=== PATIENT | male | born 1945 | race Caucasian/White ===

== ENCOUNTER 2021-04-27 02:10 | Inpatient (IN) | payer OTHER ==
[~2021-04-27] VITALS: Ht 182.9 cm; Wt 50.8 kg
--- NOTE | ~2021-04-27 | EMS ---
[address] [address] EMS Patient Care Report Name: CHAD SIMEON Room #: 350-P ADM IN M.R.#: [id number] Admission: 04/29/21 Attend Phys: Jaya Buchanan MD Discharge: Date of : 41 Report #: [id number] THIS REPORT FOR: //name// Report Transmitted: 04/30/2021 10:23 EMS Care Summary [place], [place]/[facility] Incident [id number] @ 04/27/2021 01:33 Incident Location [address] [facility] [address] Anne[address] Patient CHAD SIMEON Male, 76 Years 1945 Patient Address [address] [place] [address] [address] [place] [address] Patient History Chronic Obstructive Pulmonary Disease (COPD),Hypertension (HTN),Gastro-Esophageal Reflux Disease (GERD),Bronchitis Chronic,Emphysema,Anxiety Disorder (Panic Attacks),Depression,Anemia,Chronic Respiratory Failure, Patient Allergies No known allergies, Patient Medications Enoxaparin, Zoloft, Xanax, Aspirin, Valium, Albuterol, Combivent, Atrovent, Chief Complaint Short of Breath ( extreme) Disposition Transported [place] Reason Breathing Problem Transported To [address] [address] EMS Patient Care Report Name: CHAD SIMEON Room #: 350-P ADM IN M.R.#: [id number] Admission: 04/29/21 Attend Phys: Jaya Buchanan MD Discharge: Date of : 41 Report #: [id number] Nurse at [facility] stated Pt is new to the facility and since he arrived early yesterday he has been non compliant with his medication and the only thing that the Pt wanted was his Anxiety Medication and has refused to use his Rescue Inhaler or nebulizer treatments ordered every 2-[address] Valdez stated around 1800 hrs Pt started C/O being short of breath and would then use his Nebulizer treatment but would only use it for a little while and then ask for more of his Anxiety Medication, due to Pt telling her at that time is the only thing that can help his breathing . Nurse stated as the late evening and morning went on Pt became more short of breath and refused further Medication for his Chronic COPD and Pt oxygen sat's have dropped into the low 90's and upper 80's and turned Pt oxygen up to 6 lpm via N.C. and she noticed that Pt lung varma were diminished in lower lobes and Pt was struggling to breath. Pt is unable to speak with EMS due to being extremely short of Breath. Pt found sitting in his bed leaning forward in the tripod position , using accessory and abdominal muscle to breath with and Pt oxygen Saturation was at 82% on 6 lpm via N.C which staff had turned up . Pt is pale , extremely diaphoretic with cyanotic finger nails , lips and Pt is a GCS 15 and could not speak more than 2 words due to being extremely short of breath. Pt is with diminished lung sounds noted in lower lung varma bilateral and extremely diminished lungs sounds noted in Pt lung sounds in upper lung varma bilateral . EMS placed a Atrovent and Abuteral tx via neb mask on Pt @ 8 LPM and Pt would only hold it so close to his face when EMS attempted to get Pt to place on his face and take deep breaths. Pt had no change and EMS attempted to place Pt on CPAP but Pt began to fight and the more he was getting upset the worse his breathing was. EMS attempted to place the Pt back on A&A nebulizer treatment and coached Pt to take deep breaths to get medication down into lung varma, but Pt still would not place mask tight against his face. EMS placed a I.V lock in Pt and gave Pt Solu-medrol S,I.V.P and Pt received 125 MG I.V, Pt still had no change in breathing rate or type of breathing and still was fighting to take deep breaths. Pt loaded up in Ambulance transported to [facility] ER and received by RN / Adrianna Please note Pt is a GCS 15 and had no change in his LOC while with EMS, Pt could not sign due to being extremely short of Breath and moved into ER. Initial Vitals @01:45P: 126,R: 30,BP: 192/110,Pain: 0/10,GCS: 15,SpO2: 82,Revised Trauma: 11, @02:00P: 126,R: 32,BP: 173/112,Pain: 0/10,GCS: 15,SpO2: 88,Revised Trauma: 11, @01:52P: 128,R: 30,BP: 187/102,Pain: 0/10,GCS: 15,SpO2: 88,Revised Trauma: 11, Assessments @01:43MENTAL:Event Oriented,Time Oriented,Place Oriented,Person Oriented,SKIN:Cyanotic,Pale,Diaphoresis,HEENT:Head/Face: No Abnormalities,Neck/Airway: No Abnormalities,LUNG SOUNDS:General: Other,ABDOMEN:General: Other,PELVIS//GI:No [facility] [address] [place] [address] EMS Patient Care Report Name: CHAD SIMEON Room #: 350-P [facility]#: [id number] Admission: 04/29/21 Attend Phys: Jaya Buchanan MD Discharge: Date of : 41 Report #: [id number] Abnormalities,EXTREMITIES:Capillary Refill: Left Upper: < 2 Sec,Left Arm: No Abnormalities,Right Arm: No Abnormalities,Left Leg: No Abnormalities,Right Leg: No Abnormalities,PULSE:Radial: 2+ Normal,NEURO:No Abnormalities,@02:00MENTAL:Event Oriented,Place Oriented,Time Oriented,Person Oriented,SKIN:Pale,Diaphoresis,Cyanotic,HEENT:Head/Face: No Abnormalities,Neck/Airway: No Abnormalities,LUNG SOUNDS:General: Other,ABDOMEN:General: Other,PELVIS//GI:No Abnormalities,EXTREMITIES:Capillary Refill: Left Upper: < 2 Sec,Left Arm: No Abnormalities,Right Arm: No Abnormalities,Left Leg: No Abnormalities,Right Leg: No Abnormalities,PULSE:Radial: 2+ Normal,NEURO:No Abnormalities, Impression Chronic Obstructive Pulmonary Disease (COPD) Procedures @01:43ALS AssessmentResponse: UnchangedSucceeded@01:46CPAP FlowRate: 15 Response: WorseFailed@PTAOxygen FlowRate: 6 Device: Nasal Cannula (NC) Response: UnchangedFailed@01:483-Lead ECGResponse: UnchangedSucceeded@01:49Albuterol - 2.5 Milligrams (mg) - NebulizedResponse: Unchanged@01:49Atrovent - 0.5 Milligrams (mg) - NebulizedResponse: Unchanged@01:53Saline Lock 0cc (18 ga) Site: Antecubital-LeftResponse: UnchangedSucceeded@01:56Solu-Medrol - 125 Milligrams (mg) - Intravenous (IV)Response: Unchanged@02:00Albuterol - 2.5 Milligrams (mg) - NebulizedResponse: Unchanged Timeline 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,Oxygen FlowRate: 6 Device: Nasal Cannula (NC) Response: UnchangedFailed, 01:31,Call Received 01:31,Dispatch Notified 01:33,Dispatched 01:35,En Route 01:40,On Scene 01:43,At Patient 01:43,ALS Assessment,Response: UnchangedSucceeded, 01:45,BP: 192/110 M,PULSE: 126,RR: 30 R,SPO2: 82 Ox,ETCO2: ,BG: ,PAIN: 0,GCS: 15, 01:46,CPAP FlowRate: 15 Response: WorseFailed, 01:48,3-Lead ECG,Response: UnchangedSucceeded, 01:49,Albuterol - 2.5 Milligrams (mg) - Nebulized,Response: Unchanged 01:49,Atrovent - 0.5 Milligrams (mg) - Nebulized,Response: Unchanged 01:52,BP: 187/102 M,PULSE: 128,RR: 30 R,SPO2: 88 Ox,ETCO2: ,BG: ,PAIN: 0,GCS: 15, 01:53,Saline Lock 0cc 18 ga Site: Antecubital-Left,Response: UnchangedSucceeded, 01:56,Solu-Medrol - 125 Milligrams (mg) - Intravenous (IV),Response: Unchanged 02:00,Albuterol - 2.5 Milligrams (mg) - Nebulized,Response: Unchanged 02:00,BP: 173/112 M,PULSE: 126,RR: 32 R,SPO2: 88 Ox,ETCO2: ,BG: ,PAIN: 0,GCS: [address] [address] EMS Patient Care Report Name: CHAD SIMEON Room #: 350-P ADM IN M.R.#: [id number] Admission: 04/29/21 Attend Phys: Jaya Buchanan MD Discharge: Date of : 41 Report #: [id number] 15, 02:01,Depart Scene 02:03,At Destination 02:22,Call Closed Disclaimer v1.1 Copyright 2020 [employer] This EMS Care Summary contains data elements from the applicable legal record (which may be displayed differently). It is designed to provide pertinent information for the following purposes: continuity of care, clinical quality, and state data reporting. The complete legal record is available to ED staff and administrators of the receiving hospital in [employer] Patient Tracker. All data is provided "as is."
[2021-04-27 02:10] VITALS: BP 108/69
[~2021-04-27 02:10] MED LIST: ALBUTEROL2.5 MG/0.1 INH; ALPRAZOLAM 0.0.25 M1 PO; ALUM-MAG HYDRO360 ML PO; APHEN325 MG PO; DUONEB 2.5-0.5 M3 ML INH; HYDROCODON-ACE1 EAC7 PO; LEVAQUIN 500 M500 M2 PO; ONDANSETRON HCL4 M1 IV; PROTONIX40 M2 PO; ROCEPHIN 1 GM VL1 G1 PO; ROCEPHIN 11 GM/100 M IV; SENNA PO; SIMETHICON CHEW80 M1 PO; SOLU-MEDRO125 MG/24 IV; SYMBICORT160 MCG/4. PO; TAMSULOSIN HCL0.4 M1 PO; XARELTO15 MG PO; XARELTO20 MG PO; [UNRECOGNIZED DRUG - CODE] IV
[2021-04-27 02:38] LABS: HEMATOCRIT 43.2 % (42.0-52.0); HEMOGLOBIN 13.2 gm/dL (14.0-18.0); MCHC 30.6 g/dL (28.0-37.0); MCV 88.2 fL (80.0-100.0); PLATELET COUNT 329 thou/uL (150-400); RDW 15.4 % (10.5-14.5); WBC 24.1 thou/uL (4.0-11.0)
[2021-04-27 02:39] LABS: BE(vivo) 8.7 mmol/L (-2 to +3); HCO3 37.9 mmol/L (22.0-26.0); PO2 62.8 mmHg (80.0-100.0); sO2 89.2 % (92.0-98.0)
[2021-04-27 02:40] LABS: PCO2 75.3 mmHg (35.0-45.0)
[2021-04-27 02:53] LABS: CALCIUM 10.1 mg/dL (8.5-10.1); CREATININE 0.8 mg/dL (0.7-1.3); POTASSIUM 5.7 mmol/L (3.5-5.1)
[2021-04-27 02:57] LABS: ALBUMIN 2.7 g/dL (3.4-5.0); TOTAL BILIRUBIN 0.3 mg/dL (0.2-1.0); TOTAL PROTEIN 6.9 g/dL (6.4-8.2)
[2021-04-27 03:26] LABS: ABSOLUTE NEUTROPHILS 22.9 thou/uL (1.4-8.2); METAMYELOCYTES 1 %
[2021-04-27 05:32] LABS: BE(vivo) 9.9 mmol/L (-2 to +3); HCO3 38.1 mmol/L (22.0-26.0); PO2 77.5 mmHg (80.0-100.0); pH 7.359 (7.360-7.450); sO2 94.5 % (92.0-98.0)
[2021-04-27 05:33] LABS: PCO2 69.2 mmHg (35.0-45.0)
[2021-04-27] MEDS ORDERED: ASA81BEC PO (06:16)
[2021-04-27] MEDS ORDERED: CHOLECALCIFEROL1 GM PO (06:19)
[2021-04-27] MEDS ORDERED: ENOXAPARIN40 MG/0.1 PO (06:20)
[2021-04-27] MEDS ORDERED: OMEPRAZOLE 20 M20 M1 PO (06:21)
[2021-04-27] MEDS ORDERED: ZOLOFT 50 MG TA50 MG PO (06:22)
[2021-04-27] MEDS ORDERED: XANAX 0.25 MG0.25 MG PO (06:22)
[2021-04-27 07:04] VITALS: BP 108/77
--- NOTE | 2021-04-27 09:36 | EKG ---
[address] [place] [address] ELECTROCARDIOGRAM REPORT Name: CHAD SIMEON Javier Room #: 350-P ADM IN M.R.#: [id number] Admission: 04/27/21 Attend Phys: Tyron Troncoso MD Discharge: Date of : 41 Report #: [id number] [facility] ED Test Date: 2021-04-27 Test Time: 03:35:06 Pat Name: CHAD SIMEON Department: Room: 350 Gender: M Mine Deputy: thierry : 1945 Requested By: Jaime Cole Order Number: [id number] MD: Hebert Buchanan Measurements Intervals Gamaliel Rate: 89 P: 81 AL: 127 QRS: -78 QRSD: 100 T: 76 QT: 340 QTc: 414 Interpretive Statements Sinus rhythm Left anterior fascicular block Abnormal R-wave progression, early transition Compared to ECG 08/07/2012 19:56:05 Left anterior fascicular block now present Sinus tachycardia no longer present Electronically Signed On 04-27-2021 9:36:04 CDT by Hebert Buchanan [email or web address] <ELECTRONICALLY SIGNED> By: Hebert Buchanan MD, [facility] 04/27/21 0936 [id number] Hebert Buchanan MD, [facility] /EPI
[2021-04-27 09:48] VITALS: BP 120/80
--- NOTE | 2021-04-27 10:09 | NUR ---
ADMIT: PT ARRIVED TO UNIT ON BIPAP. A&OX4, LUNGS DIMINISHED, BOWEL SOUNDS ACTIVEX4. PT STATES HE DID URINATE IN ER WHILE WAITING FOR ROOM ON 3W. PT APPEARS CACHETIC, COLOR WNL WITH BRUISING AT LAB DRAW SITES. DIET CONSISTENCY CHANGED TO FOLLOW ORDERS FROM IGNITE. PT DOES NOT HAVE TEETH. PER REPORT FROM FACILITY, PT BASELINE IS 4L VIA NC. THIS RN ASSISTED PT IN BRIEFLY LOOSENING BIPAP TO TAKE A DRINK OF WATER, MASK NOT FULLY REMOVED. PT TOLERATED WELL, MASK FULLY REAPPLIED. PT HAS NO PAIN, NO OTHER QUESTIONS OR CONCERNS AT THIS TIME.
[2021-04-27 10:17] LABS: CALCIUM 9.4 mg/dL (8.5-10.1); CREATININE 0.8 mg/dL (0.7-1.3); POTASSIUM 5.3 mmol/L (3.5-5.1)
[2021-04-27 15:30] VITALS: BP 122/70
[2021-04-27 20:11] VITALS: BP 149/85
[2021-04-27 22:56] LABS: CALCIUM 8.8 mg/dL (8.5-10.1); CREATININE 0.8 mg/dL (0.7-1.3); MAGNESIUM 1.9 mg/dL (1.8-2.4); POTASSIUM 4.4 mmol/L (3.5-5.1)
[2021-04-27 23:47] VITALS: BP 164/88
[2021-04-28 02:40] VITALS: BP 157/88
--- NOTE | 2021-04-28 06:53 | NUR ---
ASSUME CARE 1900. PT/VITALS STABLE. DENIES ANY PAIN. VERY POOR TOLERANCE TO ACTIVITY. WILL BENEFIT FROM PT.OT EVAL AND TX. ASSESSMENT CHARTED. PROGRESSING MODERATELY WITH POC. PLAN IS TO CONTINUE TO ENCOURAGE COUGINH AND DEEP BREATHING, MONITOR AND MANAGE RESPIRATORY FUNCTION, AND ENCOURAGE NUTRITIONAL INTAKE. WILL CONTINUE TO MONITOR AND FOLLOW WITH POC
[2021-04-28 06:59] VITALS: BP 168/86
[2021-04-28 07:24] VITALS: BP 162/63
[2021-04-28 11:35] VITALS: BP 126/78
--- NOTE | 2021-04-28 12:52 | 2DMMODE ---
[facility] [place] [address] 2 D/M-MODE ECHOCARDIOGRAM Name: CHAD SIMEON Room #: 350-P ADM IN M.R.#: [id number] Admission: 04/27/21 Attend Phys: Tyron Troncoso MD Discharge: Date of : 41 Report #: [id number] THIS REPORT FOR: cc: Osiel Carrillo MD, Christopher B. MD Santiago, Patrick MD [facility] ~ APPROVED REPORT Study performed: 04/28/2021 12:12:31 EXAM: Comprehensive 2D, Doppler, and color-flow Echocardiogram Patient Location: Bedside Room #: 350 Status: routine BSA: 1.59 HR: 78 bpm BP: 126/78 mmHg Rhythm: Very irregular. Sinus Other Information Study Quality: Adequate Technically limited study due to very thin body habitus/COPD/unable to position. Indications Hypoxia, NSVT. Hx: Severe COPD, PE. 2D Dimensions RVDd: 37.64 mm IVSd: 9.43 (7-11mm) LVOT Diam: 21.55 (18-24mm) LVDd: 51.37 mm PWd: 8.63 (7-11mm) LVDs: 39.84 (25-40mm) Left Atrium: 34.58 (27-40mm) Aortic Root: 36.92 mm Volumes Left Atrial Volume (Systole) Single Plane 4CH: 45.50 mL Aortic Valve AoV Peak Jose Daniel.: 1.20 m/s AO Peak Gr.: 5.84 mmHg LVOT Max P.53 mmHg [facility] [address] [place] [address] 2 D/M-MODE ECHOCARDIOGRAM Name: BLANCOCHAD Javier Room #: 350-P [facility] IN .R.#: [id number] Admission: 04/27/21 Attend Phys: Tyron Troncoso MD Discharge: Date of : 41 Report #: [id number] LVOT Max V: 0.80 m/s COLIN Vmax: 2.42 cm2 Mitral Valve E/A Ratio: 0.7 MV Decel. Time: 212.62 ms MV E Max Jose Daniel.: 0.48 m/s MV A Jose Daniel.: 0.72 m/s MV PHT: 61.66 ms Pulmonary Valve PV Peak Jose Daniel.: 0.61 m/s PV Peak Gr.: 1.49 mmHg Tricuspid Valve TR Peak Jose Daniel.: 3.70 m/s RAP Estimate: 15.00 mmHg TR Peak Gr.: 55.00 mmHg PA Pressure: 70.00 mmHg Left Ventricle The left ventricle is normal size. Paradoxical septal motion consistent with conduction abnormality. There is normal left ventricular wall thickness. Left ventricular systolic function is normal. LVEF is 50-55%. Mild diastolic dysfunction is present (impaired relaxation pattern). Right Ventricle Right ventricle is borderline dilated. Right ventricle is hypokinetic. Atria The left atrium size is normal. The right atrium size is normal. Aortic Valve The aortic valve is normal in structure. No aortic regurgitation is present. There is no aortic valvular stenosis. Mitral Valve The mitral valve is normal in structure. Moderate to severe mitral regurgitation Tricuspid Valve The tricuspid valve is normal in structure. Mild tricuspid regurgitation. Estimated PAP is 65-70mmHg. Pulmonic Valve [facility] [address] [place] [address] 2 D/M-MODE ECHOCARDIOGRAM Name: CHAD SIMEON Room #: 350-[facility] IN .R.#: [id number] Admission: 04/27/21 Attend Phys: Tyron Troncoso MD Discharge: Date of : 41 Report #: [id number] The pulmonary valve is normal in structure. Mild pulmonic regurgitation. Great Vessels The aortic root is normal in size. Ascending aorta is not well visualized. IVC is dilated and collapses <50% with inspiration. Pericardium There is no pericardial effusion. <Conclusion> Normal left ventricle size/wall thickness Ejection fraction 60% Grade 1 diastolic dysfunction Normal right ventricular size/function Normal atrial size Normal aortic valve structure and function Moderate to severe mitral valve insufficiency Mild tricuspid valve insufficiency Severe pulmonary hypertension Pulmonary systolic pressure estimated 65-70 mmHg Normal aortic root size No pericardial effusion Ascending aorta not well visualized <ELECTRONICALLY SIGNED> By: Davion Pichardo MD, [facility] 04/28/21 1252 125 51 Davion Pichardo MD, FACC /INF
[2021-04-28 15:20] VITALS: BP 147/89
--- NOTE | 2021-04-28 15:24 | NUR ---
INITIAL ASSESSMENT: Received consult. IDA reviewed chart and spoke with nursing and attending physician. Pt was admitted from [facility] due to acute respiratory failure. Pt with hx of COPD. Pt is on 6L of O2 and IV abx. IDA notified Tanner in admissions at [facility] of pt's admission. Pt is currently in their skilled unit. IDA spoke with pt via phone. Introduced role of SW. Pt appears to be alert/orientated. Pt reports he has been at [facility] for rehab and normally lives at home with his ex-. Pt states that he is unsure about his discharge plan, as he does not think that he will return to [facility]. Pt asked IDA to contact his dtr, Ledy. IDA placed call to Ledy ([phone]). Voice mailbox is full. IDA updated admissions at [facility]. IDA is following to assist as needed with discharge planning.
[2021-04-28 19:55] VITALS: BP 154/84
[2021-04-29 04:07] VITALS: BP 139/75
--- NOTE | 2021-04-29 04:43 | NUR ---
Pt. requested anxiety med, alprazolam given at HS and again this am with good results. He stated he slept fair during the night but once he woke up he can't go back to sleep and was feeling anxious. O2 at 6L/HF until this am around 0330. O2 sat of 88%. RT notified and O2 adjusted to 8L/HF to maintain his O2 sat greater than 90%. O2 sat of 91%-92 % on 8L/HF. He gets short of breath with minimal exertion. Assisted to use bedside commode , he voided and had bm. Also urinal later on. Burst of tachycardia around 2337 PM ,asymptomatic. Bed alarm on for safety. He calls appropriately for assistance.
[2021-04-29 07:50] VITALS: BP 138/79
[2021-04-29 11:41] VITALS: BP 129/76
--- NOTE | 2021-04-29 13:33 | NUR ---
PT ALERT AND ORIENTED X4, DENIES CHEST PAIN, NNAUSEA AND VOMITTING. XANAX GIVEN FOR ANXIETY. CURRENTLY ON 10L OF O2, BASELINE 4-5L. USES URINAL. SKIN FRAIL, BRUISES SCATTERED. FALL PRECAUTION IN PLACE. DENIES ANY NEEDS MINERVA.
[2021-04-29 15:02] VITALS: BP 133/79
--- NOTE | 2021-04-29 15:41 | NUR ---
IDA reviewed chart and spoke with nursing and attending physician. Pt is on 10L of O2 and is on IV abx/IV steroids. Therapy evals ordered to evaluate pt for discharge needs. IDA placed call to pt's dtr, Ledy. Voice mailbox is full. IDA is following to assist as needed with discharge planning.
[2021-04-29 16:11] LABS: CALCIUM 9.3 mg/dL (8.5-10.1); CREATININE 0.7 mg/dL (0.7-1.3); MAGNESIUM 2.2 mg/dL (1.8-2.4); POTASSIUM 5.1 mmol/L (3.5-5.1)
[2021-04-29 19:15] VITALS: BP 127/71
--- NOTE | 2021-04-30 02:00 | NUR ---
Sound asleep at shift change. Didn't want to eat dinner tray once he woke up except dessert (cheese cake) and ensure supplement. IV on right AC leaking , dc'd and Iv on left AC dc'd , field stick. New IV placed on right upper arm. O2 at 10L/HF with O2 sat in the low 90's. Desats easily with min activity and gets short of breath with minimal exertion. He requested xanax for anxiety with some help. RT placed him on BIPAP around 2330 at 50% FIO2 which he kept for only 30 minutes then he requested it off.
[2021-04-30 04:23] VITALS: BP 140/79
[2021-04-30 08:06] VITALS: BP 150/89
[2021-04-30 12:04] VITALS: BP 164/81
--- NOTE | 2021-04-30 15:12 | NUR ---
1100 PT O2 SAT DROP DOWN TO LOW 80'S, O2 INCREASED. DR. FLYNN ROUNDALFONSO, MADE AWARE. RT PLACED PT ON OPTIFLOW PER DR. FLYNN ORDER. OPTIFLOW AT 87%,40L. SHALLOW RESPIRATIONS AND DYSPNEIC WITH NO OR LITTLW ACTIVITY. PT WAS IN CHAIR FOR A COUPLE OF HOURS BACK IN BED. USES URINAL AND HAD A BM. FALL PREC. IN PLACE. DENIES ANY NEEDS AT MOMENT
--- NOTE | 2021-04-30 15:28 | NUR ---
SW reviewed chart and spoke with nursing and attending physician. Pt's O2 increased to 15L of O2. Pt is on IV abx and IV steroids. IDA placed call to pt's dtr, Ledy. Introduced role of SW. Pt normally lives at home with Ledy, in [place], [place]. 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 and then sent to [facility]. Ledy states they would prefer pt be discharged to a facility closer to [place]. SW discussed several options. Prior to admission, pt was using a walker at home and has a w/c for long distances. Pt is normally on 3-5L of O2 at home. [facility]. Pt does not have a PCP. Pts's dtr states that pt has said he would like to donate his body to medical science. Pt has not started the process. Pt's dtr asked SW for assistance. IDA sent email to Clark Perales Body Correction Officer Head at [facility] to obtain info. PT/OT to work with pt when he is able to participate. SW is following to assist as needed with discharge planning.
[2021-04-30 15:51] VITALS: BP 140/75
[2021-04-30 17:00] VITALS: BP 159/81
--- NOTE | 2021-04-30 17:19 | NUR ---
1500 PT STATED HAVING CHEST PAIN, 7/10 FELT LIKE DISCOMFORT. VITALS SIGNS STABLE, SEE FLOW CHAT. EKG COMPLTED, SNR. DR. ARITA PAGED. PT STATED EKG GONE AFTER I PAGE NO NEW ORDERS GIVEN
[2021-04-30 19:44] VITALS: BP 161/93
[2021-05-01] VITALS (17 sets, daily range): BP systolic 119–177; BP diastolic 65–99
--- NOTE | 2021-05-01 04:26 | NUR ---
PROGRESS PT A/O X4, VERY ANXIOUS. C/O BACK PAIN AND GIVEN TYLENOL WITH EFFECT. TAKING XANAX Q8HRS PRN FOR ANXIETY WITH EFFECT, PT SEEMS TO SETTLE AND RELAX AFTER GIVEN. REMAINS ON OPTIFLO AT 40L/87% FIO2, LUNGS COARSE THROUGHOUT AND PT COUGHING UP THICK CLEAR/ MOLINA SPUTUM, SUCTION WITH YANKEUR PROVIDED IT SEEMS PT HAVING DIFFICULTY CLEARING SPUTUM FROM MOUTH AND THROAT. STAYED IN BED FOR 2 HOURS THEN BACK UP TO THE CHAIR FOR THE NIGHT. RT TREATMENTS CONTINUE. CONTINUE POC.
[2021-05-01 05:14] LABS: ABSOLUTE NEUTROPHILS 14.8 thou/uL (1.4-8.2); BASOPHILS 0.2 % (0.0-2.0); EOSINOPHILS 0.1 % (0.0-3.0); HEMATOCRIT 39.9 % (42.0-52.0); HEMOGLOBIN 12.4 gm/dL (14.0-18.0); LYMPHOCYTES 1.8 % (24.0-44.0); MCH 27.3 pg (26.0-34.0); MCHC 31.1 g/dL (28.0-37.0); MCV 87.7 fL (80.0-100.0); MONOCYTES 2.9 % (1.0-8.0); PLATELET COUNT 339 thou/uL (150-400); RBC 4.55 mil/uL (4.50-6.00); WBC 15.6 thou/uL (4.0-11.0)
[2021-05-01 06:11] LABS: ALBUMIN 2.4 g/dL (3.4-5.0); CALCIUM 9.1 mg/dL (8.5-10.1); CREATININE 0.8 mg/dL (0.7-1.3); TOTAL BILIRUBIN 0.3 mg/dL (0.2-1.0); TOTAL PROTEIN 5.9 g/dL (6.4-8.2)
[2021-05-01 06:17] LABS: POTASSIUM 5.3 mmol/L (3.5-5.1)
--- NOTE | 2021-05-01 07:17 | EKG ---
[place] [address] [facility] [place] [address] ELECTROCARDIOGRAM REPORT Name: CHAD SIMEON Room #: 350-P ADM IN M.R.#: [id number] Admission: 04/27/21 Attend Phys: Jaya Buchanan MD Discharge: Date of : 41 Report #: [id number] [facility] Test Date: 2021-04-30 Test Time: 16:56:22 Pat Name: CHAD SIMEON Department: Room: 350 P Gender: M Woodyard Operator: LORELEI : 1945 Requested By: Samra Simpson Order Number: [id number] MD: Davion Pichardo Measurements Intervals [place] Rate: 57 P: 45 OH: 130 QRS: -70 QRSD: 103 T: 51 QT: 384 QTc: 374 Interpretive Statements Sinus rhythm Multiple premature complexes, vent & supraven Left anterior fascicular block Abnormal R-wave progression, early transition Nonspecific T abnormalities, anterior leads Baseline wander in lead(s) V4 Compared to ECG 04/27/2021 03:35:06 T-wave abnormality now present Electronically Signed On 05-01-2021 7:16:39 CDT by Davion Pichardo [email or web address] <ELECTRONICALLY SIGNED> By: Davion Pichardo MD, FACC 05/01/21 0716 1656 165 Davion Pichardo MD, [facility] /EPI
[2021-05-01 09:05] LABS: BE(vivo) 13.6 mmol/L (-2 to +3); HCO3 43.5 mmol/L (22.0-26.0); PO2 66.2 mmHg (80.0-100.0); pH 7.331 (7.360-7.450); sO2 90.6 % (92.0-98.0)
[2021-05-01 09:10] LABS: PCO2 84.3 mmHg (35.0-45.0)
--- NOTE | 2021-05-01 11:09 | NUR ---
Consider appetite stimulant, obtain current weight now and twice weekly
--- NOTE | 2021-05-01 11:17 | NUR ---
IDA reviewed chart and spoke with nursing and attending physician. Pt placed on optiflow yesterday afternnon and then placed on bipap this morning. Pt to be transferred to ICU. IDA provided attending physician with phone number for pt's juan ramonrLedy. IDA/TORI following to assist as needed with discharge planning.
--- NOTE | 2021-05-01 11:58 | NUR ---
assumed care of pt at 0700. pt unable to maintain spo2 > 90% on optiflow despite increased O2. requiring bipap to meet o2 needs. physician notified. lasix ordered. plans to transfer to icu. dtr notified of change in patient status. report given to ICU nurse. waiting on RT to transfer patient to rm 236. pt stable at this time.
--- NOTE | 2021-05-01 15:21 | NUR ---
PT DAUGHTER AT BEDSIDE NOW, PT RESTING COMFORTABLY, TALKING TO DAUGHTER. PT IS TOELRATING BIPAP WELL MAINTAINING OXYGEN SATS IN HIGH 90'S. PT HAD GOOD RESPONSE TO LASIX, HIGH CATH PLACED TO MONITOR I&O'S AND DECREASE PATIENT FATIGUE AND TO MAINTAIN OXYGEN LEVELS. WILL CONTINUE TO MONTIOR AND FOLLOW POC.
--- NOTE | 2021-05-01 15:21 | NUR ---
A #5F TRIPLE LUMEN POWER PICC WAS PLACED AFTER A BEDSIDE TIMEOUT WAS COMPLETED PER HOSPITAL POLICY. THE LINE WAS TRIMMED TO 46CM AND ADVANCED WITHOUT DIFFICULTY. THE LINE WAS CONFIRMED AT 1CM EXTERNAL USING SHERLOCK 3CG. SECURED AND RELEASED FOR USE
[2021-05-02] VITALS (23 sets, daily range): BP systolic 115–163; BP diastolic 64–90
[2021-05-02 04:53] LABS: ABSOLUTE NEUTROPHILS 11.2 thou/uL (1.4-8.2); BASOPHILS 0.1 % (0.0-2.0); HEMATOCRIT 35.8 % (42.0-52.0); HEMOGLOBIN 11.3 gm/dL (14.0-18.0); LYMPHOCYTES 1.6 % (24.0-44.0); MCH 27.1 pg (26.0-34.0); MCHC 31.5 g/dL (28.0-37.0); MONOCYTES 3.6 % (1.0-8.0); PLATELET COUNT 269 thou/uL (150-400); POLYS 94.7 % (36.0-66.0); RBC 4.16 mil/uL (4.50-6.00); RDW 14.2 % (10.5-14.5); WBC 11.8 thou/uL (4.0-11.0)
[2021-05-02 05:09] LABS: BE(vivo) 15.4 mmol/L (-2 to +3); HCO3 42.1 mmol/L (22.0-26.0); PCO2 61.2 mmHg (35.0-45.0); pH 7.455 (7.360-7.450); sO2 88.9 % (92.0-98.0)
[2021-05-02 05:10] LABS: PO2 54.6 mmHg (80.0-100.0)
[2021-05-02 05:18] LABS: ALBUMIN 2.7 g/dL (3.4-5.0); BUN 51 mg/dL (7-18); CHLORIDE 102 mmol/L (98-107); CREATININE 0.9 mg/dL (0.7-1.3); GLUCOSE 146 mg/dL (74-106); PHOSPHORUS 4.6 mg/dL (2.5-4.9); POTASSIUM 4.9 mmol/L (3.5-5.1); SGOT 22 U/L (15-37); SGPT 70 U/L (30-65); SODIUM 147 mmol/L (136-145); TOTAL BILIRUBIN 0.5 mg/dL (0.2-1.0); TOTAL PROTEIN 5.7 g/dL (6.4-8.2)
[2021-05-02 05:37] LABS: CO2 > 45 mmol/L (21-32)
--- NOTE | 2021-05-02 09:22 | NUR ---
Cont to require use of BIPAP, desat o2 when bipap is off even to eat. Daughter manuel at bedside, visited. Abraham was writing on white board. Pt and family requested information about body will program. Hospitalist going to meet with family around 11 am. information provided to pt and family. No anticipated dc over the weekend.
--- NOTE | 2021-05-02 16:04 | NUR ---
ASSESSMENT CHARTED. PT ALERT AND ORIENTED. VSS. DENIED HAVING PAIN OR DISCOMFORT. ON BIPAP. DAUGHTER UPDATED ON PT'S PROGRESS AND PLAN OF CARE. CODE STATUS UPDATED PER THE PATIENT AND THE DAUGHTER. DR. NIDA COLLINS.
[2021-05-03] VITALS (18 sets, daily range): BP systolic 114–189; BP diastolic 59–99
[2021-05-03 03:51] LABS: BE(vivo) 8.7 mmol/L (-2 to +3); HCO3 40.3 mmol/L (22.0-26.0); PCO2 105.9 mmHg (35.0-45.0); PO2 61.8 mmHg (80.0-100.0); pH 7.198 (7.360-7.450)
[2021-05-03 05:22] LABS: HEMATOCRIT 33.2 % (42.0-52.0); HEMOGLOBIN 10.3 gm/dL (14.0-18.0); MCH 26.8 pg (26.0-34.0); MCHC 31.2 g/dL (28.0-37.0); PLATELET COUNT 284 thou/uL (150-400); RBC 3.86 mil/uL (4.50-6.00); RDW 14.7 % (10.5-14.5); WBC 23.5 thou/uL (4.0-11.0)
[2021-05-03 05:42] LABS: ALBUMIN 2.5 g/dL (3.4-5.0); ANION GAP < 0 mmol/L (7-16); BUN 52 mg/dL (7-18); CALCIUM 8.3 mg/dL (8.5-10.1); CHLORIDE 101 mmol/L (98-107); CO2 44 mmol/L (21-32); GLUCOSE 294 mg/dL (74-106); MAGNESIUM 2.3 mg/dL (1.8-2.4); PHOSPHORUS 6.1 mg/dL (2.5-4.9); POTASSIUM 4.7 mmol/L (3.5-5.1); SGOT 30 U/L (15-37); SGPT 73 U/L (30-65); SODIUM 144 mmol/L (136-145); TOTAL BILIRUBIN 0.6 mg/dL (0.2-1.0); TOTAL PROTEIN 5.4 g/dL (6.4-8.2)
--- NOTE | 2021-05-03 06:36 | NUR ---
PT ALERT AND ORIENT TIMES THREE, FORGETFUL. VSS, AFEBRILE. SR-SA PER MONITOR. ON BIPAP. SETTINGS CHANGED AFTER PT'S CRITICAL ABG'S, DESATS IN MID 80'S AND LABORED BREATHING. NEW SETTINGS = RATE 14, 20/10, FIO2 100% TAKES PT A LONG TIME TO RECOVERING AFTER HOB IS LOWERED > 30 DEGREES, PT VERY CONGESTED, UNABLE TO COUGH SECRETIONS UP/OUT. TOLERATE TAKING PO MEDS WITH APPLE SAUCE. PT IS A DNR OF 05/02/21. DAUGHTER NATA AND SON WERE NOTIFIED OF PT'S STATUS CHANGE, AND BOTH WERE ALLOWED TO COME AND BE AT PT'S BEDSIDE. POOR PROGRESS. WILL CONTINUE TO MONITOR.
--- NOTE | 2021-05-03 07:53 | NUR ---
DR FLYNN NOTIFIED THAT PT HAS A NEW PNEUMO IN THE RIGHT LUNG. HE IS SATTING 96% ON THE BIPAP WITH FI02 100%. RT IS NOTIFIED OF THE CHANGE. PT HAS DRIED BLOOD AROUND HIS NOSTRILS AND BRUISING ALL UP AND DOWN HIS ARMS. ASA AND LOVENOX IS BEING HELD PER DR. ALVA. HIS HGB IS 10.3 AND PLTS > 200.
[2021-05-03 13:33] LABS: ABSOLUTE NEUTROPHILS 22.1 thou/uL (1.4-8.2)
[2021-05-03 13:34] LABS: ANISOCYTOSIS 1+
--- NOTE | 2021-05-03 16:49 | NUR ---
ASSUMED CARE OF PATIENT AT 0600. PATIENT WAS ON BIPAP AFTER FAILING THE HEATED HIGH FLOW. PATIENT IS NOW ON A MORPHINE DRIP AND WAITING ON FAMILY TO COME SEE HIM. WE WILL BE TAKING HIM TO COMFORT CARE LATER TODAY.
--- NOTE | 2021-05-03 18:24 | NUR ---
PT LOUANN REQUESTS THE BIPAP REMOVAL AT 1800. PT IS ON A MORPHINE DRIP; HE IS NOT DISPLAYING AIR HUNGER. PT IS COMFORTABLE WITH THIS SONS AT THE BEDSIDE. HE IS NOT RESPONSIVE BUT HIS SATURATION IS DROPPING QUICKLY TO THE 50S. BUT THE HR AND BP IS ADEQUATE AT THIS TIME.
--- NOTE | 2021-05-03 20:40 | NUR ---
This RN took report from PAULA Ye and assumed care at 1900. Both sons to bedside. Patient passed at 1930. PAULA Kumar and I assessed patient and pronounced TOD together at 1930. All consults and MTN were notified in a timely manner.
== END 2021-05-03 19:30 | DRG 871 ==
LOC: ER 02:10 → ICU 03:21 → EROBS 03:21 → 3W 03:21 → EROBS 09:28 → 3W 04-29 14:42 → ER 04-29 14:42 → ICU 05-01 12:26
PROVIDERS: Emergency Medicine; Nurse Practitioner Family; Pediatrics; Specialist; ADMIT Hospitalist; ATTEND Hospitalist
PROC: 5A09357 Assistance with Respiratory Ventilation, Less than 24 Consecutive Hours, Continuous Positive Airway Pressure (ICD-10-PCS; principal; 2021-04-27)
PROC: 5A0935A Assistance with Respiratory Ventilation, Less than 24 Consecutive Hours, High Flow/Velocity Cannula (ICD-10-PCS; principal; 2021-04-27)
PROC: 5A0935A Assistance with Respiratory Ventilation, Less than 24 Consecutive Hours, High Flow/Velocity Cannula (ICD-10-PCS; 2021-04-28)
PROC: 5A0935A Assistance with Respiratory Ventilation, Less than 24 Consecutive Hours, High Flow/Velocity Cannula (ICD-10-PCS; 2021-04-29)
PROC: 5A0935A Assistance with Respiratory Ventilation, Less than 24 Consecutive Hours, High Flow/Velocity Cannula (ICD-10-PCS; 2021-04-30)
PROC: 5A09457 Assistance with Respiratory Ventilation, 24-96 Consecutive Hours, Continuous Positive Airway Pressure (ICD-10-PCS; 2021-05-01)
PROC: 02HV33Z Insertion of Infusion Device into Superior Vena Cava, Percutaneous Approach (ICD-10-PCS; 2021-05-01)
PROC: 5A0935A Assistance with Respiratory Ventilation, Less than 24 Consecutive Hours, High Flow/Velocity Cannula (ICD-10-PCS; 2021-05-01)
DX: A41.9 Sepsis, unspecified organism (principal); J69.0 Pneumonitis due to inhalation of food and vomit; J96.21 Acute and chronic respiratory failure with hypoxia; J96.22 Acute and chronic respiratory failure with hypercapnia; I47.1 Supraventricular tachycardia; Z20.822 Contact with and (suspected) exposure to COVID-19; K21.9 Gastro-esophageal reflux disease without esophagitis; F41.9 Anxiety disorder, unspecified; J43.9 Emphysema, unspecified; J45.909 Unspecified asthma, uncomplicated; I27.20 Pulmonary hypertension, unspecified; E87.5 Hyperkalemia; I08.1 Rheumatic disorders of both mitral and tricuspid valves; Z66 Do not resuscitate; B95.8 Unspecified staphylococcus as the cause of diseases classified elsewhere; Z95.828 Presence of other vascular implants and grafts; Z87.891 Personal history of nicotine dependence; Z86.718 Personal history of other venous thrombosis and embolism; Z86.711 Personal history of pulmonary embolism
CPT/HCPCS: 10078; 10779; 10879; 27000; 50455